=== PATIENT | male | born 1990 | race Hispanic/Latino ===

== ENCOUNTER 2019-12-09 14:59 | Emergency (ER) | payer BC ==
[~2019-12-09] VITALS: Ht 165.1 cm; Wt 88.9 kg
[2019-12-09] MEDS ORDERED: ROBAXIN-750750 MG PO (15:22)
[2019-12-09] MEDS ORDERED: IBUPROFEN600 MG PO (15:22)
== END 2019-12-09 15:40 | disposition home or self-care (01) ==
LOC: FSED 14:59
DX: S16.1XXA Strain of muscle, fascia and tendon at neck level, initial encounter (principal); S40.812A Abrasion of left upper arm, initial encounter; V43.52XA Car driver injured in collision with other type car in traffic accident, initial encounter; Y92.488 Other paved roadways as the place of occurrence of the external cause
CPT/HCPCS: 99282